=== PATIENT | male | born 1990 | race Caucasian/White ===

== ENCOUNTER 2021-06-04 12:07 | Outpatient (CLI) | payer BC, SELFPAY | END 2021-06-04 23:59 | disposition short-term general hospital (02) | LOC: LABSPEC 12:08 | PROVIDERS: PCP Family Medicine; Referring Provider Physician Assistant Surgical; Visit Provider Physician Assistant Surgical | DX: Z20.822 Contact with and (suspected) exposure to COVID-19 (principal) | CPT/HCPCS: 87635; U0003; U0005 ==